=== PATIENT | male | born 1985 | race Caucasian/White ===

== ENCOUNTER 2018-03-07 17:52 | Emergency (ER) | payer OTHER ==
[2018-03-07 18:02] VITALS: BP 154/92
--- NOTE | 2018-03-07 18:18 | EDM.PDOC ---
ED HPI GENERAL MEDICAL PROBLEM - General Chief Complaint: Chest Pain Stated Complaint: PAIN IN CHEST Time Seen by Provider: 03/07/18 18:02 Source of Information: Reports: Patient, RN Notes Reviewed - History of Present Illness INITIAL COMMENTS - FREE TEXT/NARRATIVE: 32 year old male with intermitant L chest pain for the past week, mild achiness L chest without radiation. No cough, dyspnea, fever, chills. no hx diabetes, Htn, CAD, and does not smoke. Family hx also fairly neg. Not aware of specific injury but does do occasional heavy lifting with work. Pain worse at times with certain types of motion. Chest Pain Score (Numeric/FACES): 3 - Related Data Allergies Allergy/AdvReac Type Severity Reaction Status Date / Time cat dander Allergy Swollen Verified 03/07/18 17:59 Eyes tomato Allergy Facial Verified 03/07/18 17:59 Swelling watermelon Allergy Facial Verified 03/07/18 17:59 Swelling Home Meds: Home Meds Allergy Med? 03/07/18 [History] Past Medical History HEENT History: Reports: Other (See Below) Other HEENT History: seasonal allergies Respiratory History: Reports: Asthma Musculoskeletal History: Reports: Fracture Other Musculoskeletal History: right middle finger Social & Family History - Family History Family Medical History: Noncontributory - Tobacco Use Smoking Status *Q: Never Smoker - Caffeine Use Caffeine Use: Reports: Coffee - Recreational Drug Use Recreational Drug Use: No ED ROS GENERAL - Review of Systems Review Of Systems: See Below Constitutional: Denies: Fever, Chills, Diaphoresis HEENT: Denies: Throat Pain Respiratory: Denies: Shortness of Breath, Wheezing, Pleuritic Chest Pain, Cough Cardiovascular: Reports: Chest Pain. Denies: Lightheadedness, Palpitations GI/Abdominal: Denies: Abdominal Pain, Nausea, Vomiting Musculoskeletal: Denies: Neck Pain, Shoulder Pain, Arm Pain, Back Pain Skin: Reports: No Symptoms Neurological: Reports: No Symptoms ED EXAM, GENERAL - Physical Exam Exam: See Below General Appearance: Alert, No Apparent Distress Throat/Mouth: Normal Inspection Head: Atraumatic Neck: Supple, Full Range of Motion Respiratory/Chest: No Respiratory Distress, Lungs Clear, Normal Breath Sounds, Chest Non-Tender Cardiovascular: Regular Rate, Rhythm GI/Abdominal: Soft, Non-Tender Extremities: Normal Inspection, Normal Range of Motion Neurological: Alert, Oriented, No Motor/Sensory Deficits Skin Exam: Warm, Dry, Normal Color EKG INTERPRETATION EKG Date: 03/07/18 Rhythm: NSR [place]: Normal P-Wave: Present QRS: Normal ST-T: Normal Course - Vital Signs Last Recorded V/S: Last Vital Signs Temp 98.4 F 03/07/18 17:59 Pulse 64 03/07/18 17:59 Resp 13 03/07/18 17:59 BP 154/92 H 03/07/18 17:59 Pulse Ox 96 03/07/18 17:59 - Orders/Labs/Meds Orders: Active Orders 24 hr Category Date Time Status EKG 12 Lead [EKG Documentation Completion] [RC] STAT Care 03/07/18 18:33 Active - Re-Assessments/Exams Free Text/Narrative Re-Assessment/Exam: 03/07/18 18:38 normal EKG, rythm nl, sats are good, pain free at this time, worse with certain types of motion, further work up not clinically indicated at this time. Departure - Departure Time of Disposition: 18:17 Disposition: Home, Self-Care 01 Condition: Fair Clinical Impression: Chest wall pain Referrals: PCP,None [Primary Care Provider] - Forms: ED Department Discharge Additional Instructions: avoid heavy lifting for a few days or until pain resolving. advil or ibuprofen 800 mg 2 to 3 times daily as needed, follow up clinic if not resolving withing 3 to 5 days as expected, return to ED as needed if sx worsening in any way. - My Orders Last 24 Hours: My Active Orders 03/07/18 18:33 EKG 12 Lead [EKG Documentation Completion] [RC] STAT - Assessment/Plan Last 24 Hours: My Active Orders 03/07/18 18:33 EKG 12 Lead [EKG Documentation Completion] [RC] STAT
== END 2018-03-07 18:45 | disposition home or self-care (01) ==
LOC: JD.ED 17:52
DX: R07.89 Other chest pain (principal); J45.909 Unspecified asthma, uncomplicated; Z91.018 Allergy to other foods
CPT/HCPCS: 93005; 99284-25